=== PATIENT | male | born 1930 | race Hispanic/Latino ===

== ENCOUNTER → 2017-12-23 | Outpatient (CLI) | payer MEDICARE ==
[~2017-12-23] MED LIST: AMLO5TAB2 PO; ASPI-555 PO; CLOP75TA32 PO; FOLI1TAB85 PO; GABA-531 PO; HYDR25TA PO; LISI-613 PO; METO-391 PO; PANT40TA25 PO; SIMV20TA6 PO; TAMS0.4C32 PO; [UNRECOGNIZED DRUG - OTHER] PO
== END | disposition home or self-care (01) ==
LOC: RAH 09:27
PROVIDERS: ATTEND Internal Medicine Cardiovascular Disease
DX: I71.2 Thoracic aortic aneurysm, without rupture (principal)
CPT/HCPCS: 76775

== ENCOUNTER 2018-04-07 22:58 | Emergency (ER) | payer MEDICARE ==
[2018-04-07] MEDS ORDERED: GLUCAGON 1MG KIT 1 MG ML ONE (23:44)
[2018-04-07 23:45] LABS: EOSINOPHILS % (AUTO) 10.7 % (0.0-8.0); HEMATOCRIT 40.1 % (42-54); LYMPHOCYTES % (AUTO) 17.2 % (21.0-51.0); MEAN CORPUSCULAR HEMOGLOBIN 32.4 pg (27.0-33.0); MEAN CORPUSCULAR HGB CONC 34.4 g/dL (32.0-36.0); MEAN CORPUSCULAR VOLUME 94.2 fL (79-99); MONOCYTES % (AUTO) 12.1 % (3.0-13.0); NUCLEATED RED BLOOD CELLS 0.1 % (0.0-0.19); PLATELET COUNT (AUTO) 153 K/uL (130-400); RED BLOOD CELL COUNT(AUTO) 4.25 MIL/uL (4.50-6.20); RED CELL DISTRIBUTION WIDTH 13.4 % (11.0-15.5); WHITE BLOOD COUNT (AUTO) 3.9 K/uL (4.8-10.8)
[2018-04-07] MEDS ORDERED: LORAZEPAM 2 MG/ML 1 ML VIAL ONE (23:45)
[2018-04-07 23:57] LABS: CREATININE 1.6 mg/dL (0.5-1.5); POTASSIUM 3.5 mmol/L (3.5-5.1)
[2018-04-07 23:58] LABS: INR 1.21 (0.85-1.15); PARTIAL THROMBOPLASTIN TIME 33.2 SEC (26.3-35.5); PROTHROMBIN TIME 12.7 SEC (9.6-11.6)
== END 2018-04-08 02:01 | disposition home or self-care (01) ==
LOC: EDH 22:58
DX: T18.128A Food in esophagus causing other injury, initial encounter (principal); R10.13 Epigastric pain; E11.9 Type 2 diabetes mellitus without complications; E78.5 Hyperlipidemia, unspecified; I10 Essential (primary) hypertension; I25.10 Atherosclerotic heart disease of native coronary artery without angina pectoris; X58.XXXA Exposure to other specified factors, initial encounter; Y93.89 Activity, other specified; Y92.89 Other specified places as the place of occurrence of the external cause; Y99.8 Other external cause status
CPT/HCPCS: 36415; 74176; 80048; 82550; 83690; 84484; 85025; 85610; 85730; 93005; 96374; 96375; 99285; J1610; J2060

== ENCOUNTER 2018-09-24 21:08 | Emergency (ER) | payer MEDICARE ==
[~2018-09-24 21:08] MED LIST changes: -AMLO5TAB2 PO; +AMLO5TAB9 PO
[2018-09-24] MEDS ORDERED: GLUCAGON 1MG KIT 1 MG ML ONE (21:30)
[2018-09-24] MEDS ORDERED: LORAZEPAM 2 MG/ML 1 ML VIAL ONE (21:31)
[2018-09-25] MEDS ORDERED: PROPOFOL 10 MG/ML 20ML VIAL IV ONE ×3 (00:38→01:13)
[2018-09-25] MEDS ORDERED: SUCCINYLCHOLINE 200MG/10ML SYR ONE (00:41)
== END 2018-09-25 02:56 | disposition home or self-care (01) ==
LOC: EDH 21:08
DX: T18.128A Food in esophagus causing other injury, initial encounter (principal); K22.2 Esophageal obstruction; E11.9 Type 2 diabetes mellitus without complications; E78.5 Hyperlipidemia, unspecified; I10 Essential (primary) hypertension; I25.810 Atherosclerosis of coronary artery bypass graft(s) without angina pectoris; Z95.0 Presence of cardiac pacemaker; Z95.1 Presence of aortocoronary bypass graft; Z79.899 Other long term (current) drug therapy; X58.XXXA Exposure to other specified factors, initial encounter; Y93.89 Activity, other specified; Y92.89 Other specified places as the place of occurrence of the external cause; Y99.8 Other external cause status
CPT/HCPCS: 36415; 43247; 86677; 93005; 96374; 96375; 99284; J0330; J1610; J2060; J2704 ×2

== ENCOUNTER 2019-06-12 10:25 | Emergency (ER) | payer MEDICARE ==
[2019-06-12 11:12] LABS: BASOPHILS % (AUTO) 0.6 % (0.0-5.0); EOSINOPHILS % (AUTO) 5.2 % (0.0-8.0); HEMATOCRIT 36.6 % (42-54); LYMPHOCYTES % (AUTO) 8.5 % (21.0-51.0); MEAN CORPUSCULAR HEMOGLOBIN 31.8 pg (27.0-33.0); MEAN CORPUSCULAR HGB CONC 33.4 g/dL (32.0-36.0); MEAN CORPUSCULAR VOLUME 95.2 fL (79-99); MONOCYTES % (AUTO) 7.8 % (3.0-13.0); NEUTROPHILS % (AUTO) 77.9 % (40.0-77.0); NUCLEATED RED BLOOD CELLS 0.1 % (0.0-0.19); PLATELET COUNT (AUTO) 127 K/uL (130-400); RED BLOOD CELL COUNT(AUTO) 3.85 MIL/uL (4.50-6.20); WHITE BLOOD COUNT (AUTO) 4.1 K/uL (4.8-10.8)
[2019-06-12 11:17] LABS: CARBON DIOXIDE 24 mmol/L (21-32); CHLORIDE 104 mmol/L (101-111); CREATININE 1.5 mg/dL (0.5-1.5); GLOMERULAR FILTR. RATE CALC 47 mL/min (>60); GLUCOSE,RANDOM 124 mg/dL (70-105); POTASSIUM 4.4 mmol/L (3.5-5.1); SODIUM SERUM 140 mmol/L (136-145); UREA NITROGEN, BLOOD 22 mg/dL (7-18)
[2019-06-12 11:22] LABS: ALBUMIN 3.7 g/dL (3.5-5.0); BILIRUBIN,TOTAL 0.5 mg/dL (0.2-1.0); TOTAL PROTEIN, SERUM 6.9 g/dL (6.0-8.3)
[2019-06-12 11:39] LABS: ALANINE AMINOTRANSFERASE 9 U/L (12-78); ASPARTATE AMINOTRANSFERASE 14 U/L (10-37)
[2019-06-12 11:43] LABS: INR 1.17 (0.85-1.15); PROTHROMBIN TIME 12.2 SEC (9.6-11.6)
== END 2019-06-12 12:34 | disposition home or self-care (01) ==
LOC: EDH 10:25
DX: I11.0 Hypertensive heart disease with heart failure (principal); I50.22 Chronic systolic (congestive) heart failure; D61.818 Other pancytopenia; E78.5 Hyperlipidemia, unspecified; E11.9 Type 2 diabetes mellitus without complications; I25.10 Atherosclerotic heart disease of native coronary artery without angina pectoris; Z95.1 Presence of aortocoronary bypass graft
CPT/HCPCS: 36415; 80053; 83880; 85025; 85610; 85730; 93971

== ENCOUNTER 2019-12-30 10:38 | Emergency (ER) | payer MEDICARE ==
[~2019-12-30 10:38] MED LIST changes: +SIMV-43 PO; -SIMV20TA6 PO
[2019-12-30 11:10] LABS: CREATININE 1.6 mg/dL (0.5-1.5); POTASSIUM 3.9 mmol/L (3.5-5.1)
[2019-12-30 11:14] LABS: ALBUMIN 3.3 g/dL (3.5-5.0); BILIRUBIN,TOTAL 0.9 mg/dL (0.2-1.0); TOTAL PROTEIN, SERUM 6.7 g/dL (6.0-8.3)
[2019-12-30 11:20] LABS: BASOPHILS % (AUTO) 0.5 % (0.0-5.0); EOSINOPHILS % (AUTO) 2.9 % (0.0-8.0); HEMATOCRIT 33.9 % (42-54); LYMPHOCYTES % (AUTO) 8.7 % (21.0-51.0); MEAN CORPUSCULAR HEMOGLOBIN 31.2 pg (27.0-33.0); MEAN CORPUSCULAR VOLUME 94.4 fL (79-99); MONOCYTES % (AUTO) 6.8 % (3.0-13.0); NEUTROPHILS % (AUTO) 80.6 % (40.0-77.0); PLATELET COUNT (AUTO) 94 K/uL (130-400); RED BLOOD CELL COUNT(AUTO) 3.59 MIL/uL (4.50-6.20); RED CELL DISTRIBUTION WIDTH 13.8 % (11.0-15.5); WHITE BLOOD COUNT (AUTO) 3.8 K/uL (4.8-10.8)
[2019-12-30 11:23] LABS: B-TYPE NATRIURETIC PEPTIDE 437 pg/mL (0-100)
[2019-12-30] MEDS ORDERED: FUROSEMIDE 10 MG/ML 4ML VIAL ONE (11:33)
[2019-12-30 11:37] LABS: INR 1.63 (0.85-1.15); PARTIAL THROMBOPLASTIN TIME 46.4 SEC (26.3-35.5); PROTHROMBIN TIME 17.3 SEC (9.6-11.6)
[2019-12-30] MEDS ORDERED: IPRATROPIUM/ALBUTEROL SULFATE 3 ML SOLUTION IH ONE (11:53)
== END 2019-12-30 14:47 | disposition home or self-care (01) ==
LOC: EDH 10:38
DX: I13.0 Hypertensive heart and chronic kidney disease with heart failure and stage 1 through stage 4 chronic kidney disease, or unspecified chronic kidney disease (principal); I50.43 Acute on chronic combined systolic (congestive) and diastolic (congestive) heart failure; E11.22 Type 2 diabetes mellitus with diabetic chronic kidney disease; N18.9 Chronic kidney disease, unspecified; I25.10 Atherosclerotic heart disease of native coronary artery without angina pectoris; E78.5 Hyperlipidemia, unspecified; Z87.891 Personal history of nicotine dependence
CPT/HCPCS: 36415; 71045; 80053; 82550; 83735; 83880; 84484 ×2; 85025; 85610; 85730; 87804 ×2; 93005 ×2; 94640; 96374; 99285; J1940

== ENCOUNTER → 2020-01-03 | Outpatient (CLI) | payer MEDICARE ==
[~2020-01-03] MED LIST changes: +LIDOCAINE HCL 2% JELLY 5 ML TP ONE
[2020-01-03 14:16] VITALS: BP 147/77
== END | disposition home or self-care (01) ==
LOC: WHH 08:45
PROVIDERS: ATTEND Surgery
DX: E11.622 Type 2 diabetes mellitus with other skin ulcer (principal); L97.821 Non-pressure chronic ulcer of other part of left lower leg limited to breakdown of skin; E11.22 Type 2 diabetes mellitus with diabetic chronic kidney disease; I13.0 Hypertensive heart and chronic kidney disease with heart failure and stage 1 through stage 4 chronic kidney disease, or unspecified chronic kidney disease; N18.9 Chronic kidney disease, unspecified; I50.43 Acute on chronic combined systolic (congestive) and diastolic (congestive) heart failure; E11.51 Type 2 diabetes mellitus with diabetic peripheral angiopathy without gangrene; I25.10 Atherosclerotic heart disease of native coronary artery without angina pectoris; E78.5 Hyperlipidemia, unspecified; D51.9 Vitamin B12 deficiency anemia, unspecified; Z95.1 Presence of aortocoronary bypass graft; Z87.891 Personal history of nicotine dependence; Z79.82 Long term (current) use of aspirin
CPT/HCPCS: 82948; 87070; 87077 ×3; 87186 ×3; A6022; A6197; G0463

== ENCOUNTER → 2020-01-08 | Outpatient (CLI) | payer MEDICARE ==
[2020-01-08 11:31] VITALS: BP 121/54
== END | disposition home or self-care (01) ==
LOC: WHH 09:00
PROVIDERS: ATTEND Surgery
DX: E11.622 Type 2 diabetes mellitus with other skin ulcer (principal); L97.822 Non-pressure chronic ulcer of other part of left lower leg with fat layer exposed; I13.0 Hypertensive heart and chronic kidney disease with heart failure and stage 1 through stage 4 chronic kidney disease, or unspecified chronic kidney disease; E11.22 Type 2 diabetes mellitus with diabetic chronic kidney disease; N18.9 Chronic kidney disease, unspecified; I50.43 Acute on chronic combined systolic (congestive) and diastolic (congestive) heart failure; E11.51 Type 2 diabetes mellitus with diabetic peripheral angiopathy without gangrene; I25.10 Atherosclerotic heart disease of native coronary artery without angina pectoris; E78.5 Hyperlipidemia, unspecified; D51.9 Vitamin B12 deficiency anemia, unspecified; Z79.4 Long term (current) use of insulin; Z87.891 Personal history of nicotine dependence; Z95.1 Presence of aortocoronary bypass graft
CPT/HCPCS: 11042; 11045; A6022; A6197

== ENCOUNTER → 2020-01-22 | Outpatient (CLI) | payer MEDICARE ==
[~2020-01-22] MED LIST changes: -LIDOCAINE HCL 2% JELLY 5 ML TP ONE; +LIDOCAINE/PRILOCAINE CREAM 5GM TUBE TP ONE
[2020-01-22 10:41] VITALS: BP 132/52
== END | disposition home or self-care (01) ==
LOC: WHH 08:55
PROVIDERS: ATTEND Surgery
DX: E11.622 Type 2 diabetes mellitus with other skin ulcer (principal); L97.822 Non-pressure chronic ulcer of other part of left lower leg with fat layer exposed; E11.22 Type 2 diabetes mellitus with diabetic chronic kidney disease; I13.0 Hypertensive heart and chronic kidney disease with heart failure and stage 1 through stage 4 chronic kidney disease, or unspecified chronic kidney disease; N18.9 Chronic kidney disease, unspecified; I50.43 Acute on chronic combined systolic (congestive) and diastolic (congestive) heart failure; E11.51 Type 2 diabetes mellitus with diabetic peripheral angiopathy without gangrene; I25.10 Atherosclerotic heart disease of native coronary artery without angina pectoris; E78.5 Hyperlipidemia, unspecified; D51.9 Vitamin B12 deficiency anemia, unspecified; Z79.4 Long term (current) use of insulin; Z87.891 Personal history of nicotine dependence; Z95.1 Presence of aortocoronary bypass graft
CPT/HCPCS: A6022; G0463; J3490

== ENCOUNTER → 2020-02-07 | Outpatient (CLI) | payer MEDICARE ==
[~2020-02-07] MED LIST changes: -LIDOCAINE/PRILOCAINE CREAM 5GM TUBE TP ONE
== END | disposition home or self-care (01) ==
LOC: SHCH 15:54
PROVIDERS: ATTEND Internal Medicine Cardiovascular Disease
DX: R01.1 Cardiac murmur, unspecified (principal)
CPT/HCPCS: 93306; 93356

== ENCOUNTER → 2020-02-19 | Outpatient (CLI) | payer MEDICARE ==
[~2020-02-19] MED LIST changes: +AMLO-257 PO; -AMLO5TAB9 PO; -ASPI-555 PO; +ASPI-556 PO; +FERR325T22 PO; +FOLI0.4T2 PO; +FURO20TA4 PO; +HYDR-2534 PO; -PANT40TA25 PO; +PANT40TA54 PO; +POLY17PO4 PO; +PSYL3.4P5 PO; +RIVA20TA PO; +VITAMIN B12 PO; +VITAMIN D3 PO
== END | disposition home or self-care (01) ==
LOC: EDBD → SHCH 12:37
PROVIDERS: ATTEND Internal Medicine Cardiovascular Disease
DX: I73.9 Peripheral vascular disease, unspecified (principal); R09.89 Other specified symptoms and signs involving the circulatory and respiratory systems
CPT/HCPCS: 93880; 93925

== ENCOUNTER → 2020-02-21 | Outpatient (CLI) | payer MEDICARE ==
[~2020-02-21] MED LIST changes: -AMLO-257 PO; +AMLO5TAB9 PO; -FERR325T22 PO; -FOLI0.4T2 PO; -FURO20TA4 PO; -HYDR-2534 PO; +PANT40TA25 PO; -PANT40TA54 PO; -POLY17PO4 PO; -PSYL3.4P5 PO; +REGADENOSON 0.4 MG/5 ML PF SYG IVP SCH; -RIVA20TA PO; -VITAMIN B12 PO; -VITAMIN D3 PO
== END | disposition home or self-care (01) ==
LOC: EDBD → SHCH 08:00
PROVIDERS: ATTEND Internal Medicine Cardiovascular Disease
DX: I10 Essential (primary) hypertension (principal); I25.810 Atherosclerosis of coronary artery bypass graft(s) without angina pectoris
CPT/HCPCS: 78452; 93017; A9500 ×2; J2785; 96374

== ENCOUNTER → 2020-02-28 | Outpatient (CLI) | payer MEDICARE ==
[~2020-02-28] MED LIST changes: +ASPI-555 PO; -ASPI-556 PO; -REGADENOSON 0.4 MG/5 ML PF SYG IVP SCH
[2020-02-28 14:40] VITALS: BP 149/59
== END | disposition home or self-care (01) ==
LOC: WHH 10:15
PROVIDERS: ATTEND Surgery
DX: E11.622 Type 2 diabetes mellitus with other skin ulcer (principal); L97.821 Non-pressure chronic ulcer of other part of left lower leg limited to breakdown of skin; E11.22 Type 2 diabetes mellitus with diabetic chronic kidney disease; I13.0 Hypertensive heart and chronic kidney disease with heart failure and stage 1 through stage 4 chronic kidney disease, or unspecified chronic kidney disease; N18.9 Chronic kidney disease, unspecified; I50.41 Acute combined systolic (congestive) and diastolic (congestive) heart failure; E78.5 Hyperlipidemia, unspecified; I25.810 Atherosclerosis of coronary artery bypass graft(s) without angina pectoris; I25.10 Atherosclerotic heart disease of native coronary artery without angina pectoris; E11.51 Type 2 diabetes mellitus with diabetic peripheral angiopathy without gangrene; R01.1 Cardiac murmur, unspecified; Z79.4 Long term (current) use of insulin; Z87.891 Personal history of nicotine dependence; Z95.1 Presence of aortocoronary bypass graft; Z79.82 Long term (current) use of aspirin
CPT/HCPCS: A6452; G0463

== ENCOUNTER → 2020-03-06 | Outpatient (CLI) | payer MEDICARE ==
[~2020-03-06] MED LIST changes: +LIDOCAINE HCL 4% LTA SOL 4 ML VIAL TP ONE
[2020-03-06 12:54] VITALS: BP 133/51
== END | disposition home or self-care (01) ==
LOC: WHH 10:30
PROVIDERS: ATTEND Surgery
DX: E11.622 Type 2 diabetes mellitus with other skin ulcer (principal); L97.821 Non-pressure chronic ulcer of other part of left lower leg limited to breakdown of skin; E11.22 Type 2 diabetes mellitus with diabetic chronic kidney disease; I13.0 Hypertensive heart and chronic kidney disease with heart failure and stage 1 through stage 4 chronic kidney disease, or unspecified chronic kidney disease; N18.9 Chronic kidney disease, unspecified; I50.41 Acute combined systolic (congestive) and diastolic (congestive) heart failure; E11.51 Type 2 diabetes mellitus with diabetic peripheral angiopathy without gangrene; I25.810 Atherosclerosis of coronary artery bypass graft(s) without angina pectoris; I25.10 Atherosclerotic heart disease of native coronary artery without angina pectoris; E78.5 Hyperlipidemia, unspecified; R01.1 Cardiac murmur, unspecified; Z79.4 Long term (current) use of insulin; Z79.82 Long term (current) use of aspirin; Z87.891 Personal history of nicotine dependence; Z95.1 Presence of aortocoronary bypass graft
CPT/HCPCS: 11042; A6022; A6452

== ENCOUNTER → 2020-03-13 | Outpatient (CLI) | payer MEDICARE ==
[~2020-03-13] MED LIST changes: -LIDOCAINE HCL 4% LTA SOL 4 ML VIAL TP ONE
[2020-03-13 12:52] VITALS: BP 148/54
== END | disposition home or self-care (01) ==
LOC: WHH 09:00
PROVIDERS: ATTEND Surgery
DX: E11.622 Type 2 diabetes mellitus with other skin ulcer (principal); L97.821 Non-pressure chronic ulcer of other part of left lower leg limited to breakdown of skin; E11.22 Type 2 diabetes mellitus with diabetic chronic kidney disease; I13.0 Hypertensive heart and chronic kidney disease with heart failure and stage 1 through stage 4 chronic kidney disease, or unspecified chronic kidney disease; N18.9 Chronic kidney disease, unspecified; I50.41 Acute combined systolic (congestive) and diastolic (congestive) heart failure; E11.51 Type 2 diabetes mellitus with diabetic peripheral angiopathy without gangrene; I25.10 Atherosclerotic heart disease of native coronary artery without angina pectoris; I25.810 Atherosclerosis of coronary artery bypass graft(s) without angina pectoris; E78.5 Hyperlipidemia, unspecified; Z79.4 Long term (current) use of insulin; Z79.82 Long term (current) use of aspirin; Z87.891 Personal history of nicotine dependence; Z95.1 Presence of aortocoronary bypass graft
CPT/HCPCS: A6022; G0463

== ENCOUNTER → 2020-03-20 | Outpatient (CLI) | payer MEDICARE ==
[~2020-03-20] MED LIST changes: +GEL DRESSING 90 GM GEL TP ONE
[2020-03-20 11:46] VITALS: BP 176/76
== END | disposition home or self-care (01) ==
LOC: WHH 08:55
PROVIDERS: ATTEND Surgery
DX: E11.622 Type 2 diabetes mellitus with other skin ulcer (principal); L97.821 Non-pressure chronic ulcer of other part of left lower leg limited to breakdown of skin; E11.22 Type 2 diabetes mellitus with diabetic chronic kidney disease; I13.0 Hypertensive heart and chronic kidney disease with heart failure and stage 1 through stage 4 chronic kidney disease, or unspecified chronic kidney disease; N18.9 Chronic kidney disease, unspecified; I50.41 Acute combined systolic (congestive) and diastolic (congestive) heart failure; E11.51 Type 2 diabetes mellitus with diabetic peripheral angiopathy without gangrene; I25.10 Atherosclerotic heart disease of native coronary artery without angina pectoris; I25.810 Atherosclerosis of coronary artery bypass graft(s) without angina pectoris; E78.5 Hyperlipidemia, unspecified; Z79.4 Long term (current) use of insulin; Z79.82 Long term (current) use of aspirin; Z87.891 Personal history of nicotine dependence; Z95.1 Presence of aortocoronary bypass graft
CPT/HCPCS: 87070; A6022; G0463

== ENCOUNTER → 2020-03-27 | Outpatient (CLI) | payer MEDICARE ==
[~2020-03-27] MED LIST changes: +AMLO-257 PO; -AMLO5TAB9 PO; -ASPI-555 PO; +ASPI-556 PO; +FERR325T22 PO; +FOLI0.4T2 PO; +FURO20TA4 PO; -GEL DRESSING 90 GM GEL TP ONE; +HYDR-2534 PO; -PANT40TA25 PO; +PANT40TA54 PO; +POLY17PO4 PO; +PSYL3.4P5 PO; +RIVA20TA PO; +VITAMIN B12 PO; +VITAMIN D3 PO
[2020-03-27 13:49] VITALS: BP 155/60
== END | disposition home or self-care (01) ==
LOC: EDBD → WHH 09:00
PROVIDERS: ATTEND Surgery
DX: E11.622 Type 2 diabetes mellitus with other skin ulcer (principal); L97.821 Non-pressure chronic ulcer of other part of left lower leg limited to breakdown of skin; E11.51 Type 2 diabetes mellitus with diabetic peripheral angiopathy without gangrene; E11.22 Type 2 diabetes mellitus with diabetic chronic kidney disease; I13.0 Hypertensive heart and chronic kidney disease with heart failure and stage 1 through stage 4 chronic kidney disease, or unspecified chronic kidney disease; N18.9 Chronic kidney disease, unspecified; I50.41 Acute combined systolic (congestive) and diastolic (congestive) heart failure; I25.10 Atherosclerotic heart disease of native coronary artery without angina pectoris; I25.810 Atherosclerosis of coronary artery bypass graft(s) without angina pectoris; E78.5 Hyperlipidemia, unspecified; Z79.4 Long term (current) use of insulin; Z79.82 Long term (current) use of aspirin; Z87.891 Personal history of nicotine dependence; Z95.1 Presence of aortocoronary bypass graft
CPT/HCPCS: G0463

== ENCOUNTER 2020-04-01 09:00 | Outpatient (CLI) | payer MEDICARE ==
[~2020-04-01 09:00] MED LIST changes: -FERR325T22 PO; -FOLI0.4T2 PO; -FURO20TA4 PO; -HYDR-2534 PO; -POLY17PO4 PO; -PSYL3.4P5 PO; -RIVA20TA PO; -VITAMIN B12 PO; -VITAMIN D3 PO
[2020-04-01 11:26] VITALS: BP 114/68
[2020-07-10] MEDS ORDERED: RIVA20TA PO (15:55)
[2020-07-10] MEDS ORDERED: FURO20TA4 PO ×2 (15:55)
[2020-07-11] MEDS ORDERED: VITAMIN B12 PO (10:11)
[2020-07-11] MEDS ORDERED: FERR325T22 PO (10:11)
[2020-07-11] MEDS ORDERED: HYDR-2534 PO (10:11)
[2020-07-11] MEDS ORDERED: VITAMIN D3 PO (10:11)
[2020-07-11] MEDS ORDERED: FOLI0.4T2 PO (10:11)
[2020-07-11] MEDS ORDERED: PANT40TA54 PO (10:11)
[2020-07-25] MEDS ORDERED: PSYL3.4P5 PO (11:55)
[2020-07-25] MEDS ORDERED: POLY17PO4 PO (11:55)
== END 2020-04-01 11:36 | disposition home or self-care (01) ==
LOC: EDBD → WHH 09:00
PROVIDERS: ATTEND Surgery
DX: E11.622 Type 2 diabetes mellitus with other skin ulcer (principal); L97.828 Non-pressure chronic ulcer of other part of left lower leg with other specified severity; E11.51 Type 2 diabetes mellitus with diabetic peripheral angiopathy without gangrene; E11.22 Type 2 diabetes mellitus with diabetic chronic kidney disease; I13.0 Hypertensive heart and chronic kidney disease with heart failure and stage 1 through stage 4 chronic kidney disease, or unspecified chronic kidney disease; N18.9 Chronic kidney disease, unspecified; I50.41 Acute combined systolic (congestive) and diastolic (congestive) heart failure; I25.10 Atherosclerotic heart disease of native coronary artery without angina pectoris; I25.810 Atherosclerosis of coronary artery bypass graft(s) without angina pectoris; E78.5 Hyperlipidemia, unspecified; Z79.4 Long term (current) use of insulin; Z79.82 Long term (current) use of aspirin; Z87.891 Personal history of nicotine dependence; Z95.1 Presence of aortocoronary bypass graft
CPT/HCPCS: G0463

== ENCOUNTER → 2020-04-24 | Outpatient (CLI) | payer MEDICARE ==
[~2020-04-24] MED LIST changes: -AMLO-257 PO; +AMLO5TAB9 PO; +PANT40TA25 PO; -PANT40TA54 PO
== END | disposition home or self-care (01) ==
LOC: OIH 10:05 → EDBD 10:05
PROVIDERS: ATTEND Physical Medicine & Rehabilitation
DX: M16.11 Unilateral primary osteoarthritis, right hip (principal); M47.817 Spondylosis without myelopathy or radiculopathy, lumbosacral region
CPT/HCPCS: 72110; 73502

== ENCOUNTER → 2020-05-01 | Outpatient (CLI) | payer MEDICARE ==
[~2020-05-01] MED LIST changes: +LIDOCAINE HCL 4% LTA SOL 4 ML VIAL TP ONE
== END | disposition home or self-care (01) ==
LOC: EDBD → WHH 09:30
PROVIDERS: ATTEND Surgery
DX: E11.622 Type 2 diabetes mellitus with other skin ulcer (principal); L97.822 Non-pressure chronic ulcer of other part of left lower leg with fat layer exposed; S81.802A Unspecified open wound, left lower leg, initial encounter; E11.22 Type 2 diabetes mellitus with diabetic chronic kidney disease; I13.0 Hypertensive heart and chronic kidney disease with heart failure and stage 1 through stage 4 chronic kidney disease, or unspecified chronic kidney disease; N18.9 Chronic kidney disease, unspecified; I50.41 Acute combined systolic (congestive) and diastolic (congestive) heart failure; E11.51 Type 2 diabetes mellitus with diabetic peripheral angiopathy without gangrene; M16.11 Unilateral primary osteoarthritis, right hip; E78.5 Hyperlipidemia, unspecified; I25.10 Atherosclerotic heart disease of native coronary artery without angina pectoris; R01.1 Cardiac murmur, unspecified; Z95.1 Presence of aortocoronary bypass graft; Z87.891 Personal history of nicotine dependence; Z79.4 Long term (current) use of insulin; Z79.82 Long term (current) use of aspirin; X58.XXXA Exposure to other specified factors, initial encounter; Y93.89 Activity, other specified; Y92.238 Other place in hospital as the place of occurrence of the external cause; Y99.8 Other external cause status
CPT/HCPCS: 11042; 87070; 87077; 87186; A4450; A6021

== ENCOUNTER → 2020-05-08 | Outpatient (CLI) | payer MEDICARE | END | disposition home or self-care (01) | LOC: WHH 11:20 | PROVIDERS: ATTEND Surgery | DX: E11.622 Type 2 diabetes mellitus with other skin ulcer (principal); L97.822 Non-pressure chronic ulcer of other part of left lower leg with fat layer exposed; S81.802D Unspecified open wound, left lower leg, subsequent encounter; E11.22 Type 2 diabetes mellitus with diabetic chronic kidney disease; I13.0 Hypertensive heart and chronic kidney disease with heart failure and stage 1 through stage 4 chronic kidney disease, or unspecified chronic kidney disease; N18.9 Chronic kidney disease, unspecified; I50.41 Acute combined systolic (congestive) and diastolic (congestive) heart failure; E11.51 Type 2 diabetes mellitus with diabetic peripheral angiopathy without gangrene; M16.11 Unilateral primary osteoarthritis, right hip; E78.5 Hyperlipidemia, unspecified; I25.10 Atherosclerotic heart disease of native coronary artery without angina pectoris; R01.1 Cardiac murmur, unspecified; Z95.1 Presence of aortocoronary bypass graft; Z87.891 Personal history of nicotine dependence; Z79.4 Long term (current) use of insulin; Z79.82 Long term (current) use of aspirin; X58.XXXD Exposure to other specified factors, subsequent encounter | CPT/HCPCS: A6021; G0463 ==

== ENCOUNTER → 2020-05-15 | Outpatient (CLI) | payer MEDICARE | END | disposition home or self-care (01) | LOC: WHH 09:35 | PROVIDERS: ATTEND Surgery | DX: S81.802D Unspecified open wound, left lower leg, subsequent encounter (principal); E11.622 Type 2 diabetes mellitus with other skin ulcer; L97.821 Non-pressure chronic ulcer of other part of left lower leg limited to breakdown of skin; E11.22 Type 2 diabetes mellitus with diabetic chronic kidney disease; I13.0 Hypertensive heart and chronic kidney disease with heart failure and stage 1 through stage 4 chronic kidney disease, or unspecified chronic kidney disease; N18.9 Chronic kidney disease, unspecified; I50.41 Acute combined systolic (congestive) and diastolic (congestive) heart failure; E11.51 Type 2 diabetes mellitus with diabetic peripheral angiopathy without gangrene; M16.11 Unilateral primary osteoarthritis, right hip; E78.5 Hyperlipidemia, unspecified; I25.10 Atherosclerotic heart disease of native coronary artery without angina pectoris; R01.1 Cardiac murmur, unspecified; Z95.1 Presence of aortocoronary bypass graft; Z87.891 Personal history of nicotine dependence; Z79.4 Long term (current) use of insulin; Z79.82 Long term (current) use of aspirin; X58.XXXD Exposure to other specified factors, subsequent encounter | CPT/HCPCS: A6021; A6212; G0463 ==

== ENCOUNTER → 2020-05-22 | Outpatient (CLI) | payer MEDICARE ==
[~2020-05-22] MED LIST changes: +FERR325T22 PO; +FOLI0.4T2 PO; +FURO20TA4 PO; +HYDR-2534 PO; -LIDOCAINE HCL 4% LTA SOL 4 ML VIAL TP ONE; -PANT40TA25 PO; +PANT40TA54 PO; +RIVA20TA PO; +VITAMIN B12 PO; +VITAMIN D3 PO
== END | disposition home or self-care (01) ==
LOC: RAH 09:48
PROVIDERS: ATTEND Urology
DX: N43.3 Hydrocele, unspecified (principal); N50.9 Disorder of male genital organs, unspecified
CPT/HCPCS: 76870

== ENCOUNTER → 2020-05-22 | Outpatient (CLI) | payer MEDICARE ==
[~2020-05-22] MED LIST changes: -FERR325T22 PO; -FOLI0.4T2 PO; -FURO20TA4 PO; -HYDR-2534 PO; +LIDOCAINE HCL 4% LTA SOL 4 ML VIAL TP ONE; +PANT40TA25 PO; -PANT40TA54 PO; -RIVA20TA PO; -VITAMIN B12 PO; -VITAMIN D3 PO
== END | disposition home or self-care (01) ==
LOC: WHH 10:45
PROVIDERS: ATTEND Surgery
DX: E11.622 Type 2 diabetes mellitus with other skin ulcer (principal); L97.821 Non-pressure chronic ulcer of other part of left lower leg limited to breakdown of skin; S81.802D Unspecified open wound, left lower leg, subsequent encounter; E11.22 Type 2 diabetes mellitus with diabetic chronic kidney disease; I13.0 Hypertensive heart and chronic kidney disease with heart failure and stage 1 through stage 4 chronic kidney disease, or unspecified chronic kidney disease; N18.9 Chronic kidney disease, unspecified; I50.41 Acute combined systolic (congestive) and diastolic (congestive) heart failure; E11.51 Type 2 diabetes mellitus with diabetic peripheral angiopathy without gangrene; M16.11 Unilateral primary osteoarthritis, right hip; E78.5 Hyperlipidemia, unspecified; I25.10 Atherosclerotic heart disease of native coronary artery without angina pectoris; R01.1 Cardiac murmur, unspecified; Z95.1 Presence of aortocoronary bypass graft; Z87.891 Personal history of nicotine dependence; Z79.4 Long term (current) use of insulin; Z79.82 Long term (current) use of aspirin; X58.XXXD Exposure to other specified factors, subsequent encounter
CPT/HCPCS: A6021; G0463

== ENCOUNTER → 2020-05-29 | Outpatient (CLI) | payer MEDICARE ==
[~2020-05-29] MED LIST changes: -LIDOCAINE HCL 4% LTA SOL 4 ML VIAL TP ONE
== END | disposition home or self-care (01) ==
LOC: WHH 09:45
PROVIDERS: ATTEND Surgery
DX: E11.622 Type 2 diabetes mellitus with other skin ulcer (principal); L97.821 Non-pressure chronic ulcer of other part of left lower leg limited to breakdown of skin; S81.802D Unspecified open wound, left lower leg, subsequent encounter; L97.211 Non-pressure chronic ulcer of right calf limited to breakdown of skin; S81.801A Unspecified open wound, right lower leg, initial encounter; E11.22 Type 2 diabetes mellitus with diabetic chronic kidney disease; I13.0 Hypertensive heart and chronic kidney disease with heart failure and stage 1 through stage 4 chronic kidney disease, or unspecified chronic kidney disease; N18.9 Chronic kidney disease, unspecified; I50.41 Acute combined systolic (congestive) and diastolic (congestive) heart failure; E11.51 Type 2 diabetes mellitus with diabetic peripheral angiopathy without gangrene; M16.11 Unilateral primary osteoarthritis, right hip; E78.5 Hyperlipidemia, unspecified; I25.10 Atherosclerotic heart disease of native coronary artery without angina pectoris; R01.1 Cardiac murmur, unspecified; Z95.1 Presence of aortocoronary bypass graft; Z87.891 Personal history of nicotine dependence; Z79.4 Long term (current) use of insulin; Z79.82 Long term (current) use of aspirin; X58.XXXD Exposure to other specified factors, subsequent encounter; X58.XXXA Exposure to other specified factors, initial encounter; Y93.89 Activity, other specified; Y92.89 Other specified places as the place of occurrence of the external cause; Y99.8 Other external cause status
CPT/HCPCS: A6021; A6197; G0463

== ENCOUNTER → 2020-06-12 | Outpatient (CLI) | payer MEDICARE | END | disposition home or self-care (01) | LOC: WHH 09:30 | PROVIDERS: ATTEND Surgery | DX: E11.622 Type 2 diabetes mellitus with other skin ulcer (principal); L97.821 Non-pressure chronic ulcer of other part of left lower leg limited to breakdown of skin; L97.211 Non-pressure chronic ulcer of right calf limited to breakdown of skin; S81.802D Unspecified open wound, left lower leg, subsequent encounter; S81.801D Unspecified open wound, right lower leg, subsequent encounter; E11.22 Type 2 diabetes mellitus with diabetic chronic kidney disease; I13.0 Hypertensive heart and chronic kidney disease with heart failure and stage 1 through stage 4 chronic kidney disease, or unspecified chronic kidney disease; N18.9 Chronic kidney disease, unspecified; I50.41 Acute combined systolic (congestive) and diastolic (congestive) heart failure; E11.51 Type 2 diabetes mellitus with diabetic peripheral angiopathy without gangrene; M16.11 Unilateral primary osteoarthritis, right hip; E78.5 Hyperlipidemia, unspecified; I25.10 Atherosclerotic heart disease of native coronary artery without angina pectoris; R01.1 Cardiac murmur, unspecified; Z95.1 Presence of aortocoronary bypass graft; Z87.891 Personal history of nicotine dependence; Z79.4 Long term (current) use of insulin; Z79.82 Long term (current) use of aspirin; X58.XXXD Exposure to other specified factors, subsequent encounter | CPT/HCPCS: A6021; A6197; G0463 ==

== ENCOUNTER 2020-06-13 13:03 | Emergency (ER) | payer MEDICARE ==
[~2020-06-13 13:03] MED LIST changes: -PANT40TA25 PO; +PANT40TA54 PO
[2020-06-13 13:34] LABS: BASOPHILS % (AUTO) 0.3 % (0.0-5.0); EOSINOPHILS % (AUTO) 0.6 % (0.0-8.0); HEMATOCRIT 33.4 % (42-54); LYMPHOCYTES % (AUTO) 3.9 % (21.0-51.0); MEAN CORPUSCULAR HEMOGLOBIN 30.8 pg (27.0-33.0); MEAN CORPUSCULAR HGB CONC 32.9 g/dL (32.0-36.0); MEAN CORPUSCULAR VOLUME 93.6 fL (79-99); MONOCYTES % (AUTO) 7.7 % (3.0-13.0); NEUTROPHILS % (AUTO) 86.9 % (40.0-77.0); NUCLEATED RED BLOOD CELLS 0.5 % (0.0-0.19); PLATELET COUNT (AUTO) 95 K/uL (130-400); RED BLOOD CELL COUNT(AUTO) 3.57 MIL/uL (4.50-6.20); RED CELL DISTRIBUTION WIDTH 17.2 % (11.0-15.5); WHITE BLOOD COUNT (AUTO) 6.6 K/uL (4.8-10.8)
[2020-06-13 13:48] LABS: POTASSIUM 3.8 mmol/L (3.5-5.1)
[2020-06-13 13:51] LABS: INR 1.5 (0.85-1.15); PARTIAL THROMBOPLASTIN TIME 49.5 SEC (26.3-35.5)
[2020-06-13 13:52] LABS: ALBUMIN 3.2 g/dL (3.5-5.0); BILIRUBIN,DIRECT 0.3 mg/dL (0.0-0.3); BILIRUBIN,TOTAL 0.7 mg/dL (0.2-1.0); TOTAL PROTEIN, SERUM 6.4 g/dL (6.0-8.3)
[2020-06-13 15:15] LABS: APPEARANCE,URINE Turbid (CLEAR); BILIRUBIN,URINE Negative (NEGATIVE); COLOR,URINE Yellow (YELLOW); GLUCOSE, URINE (UA) Negative (NEGATIVE); KETONES,URINE Negative (NEGATIVE); LEUKOCYTE ESTERASE ,URINE Large (NEGATIVE); NITRATE,URINE Negative (NEGATIVE); OCCULT BLOOD,URINE Moderate (NEGATIVE); PROTEIN,URINE POS 1+ mg/dL (NEGATIVE)
[2020-06-13 15:23] LABS: BACTERIA,URINE Few /HPF (None Seen); RBC,URINE None Seen /HPF (0-1); SQUAMOUS EPITHELIAL CELL,UR None Seen /HPF (0-2); WBC,URINE TNTC /HPF (0-1)
[2020-06-13] MEDS ORDERED: CEFTRIAXONE SODIUM 2 GM VIAL ONE (16:16)
[2020-06-13] MEDS ORDERED: SODIUM CHLORIDE 0.9% 1000ML 1,000 ML IV ONE (16:17)
[2020-06-13] MEDS ORDERED: SODIUM CHLORIDE 0.9% 100 ML IV ONE (16:17)
[2020-06-13] MEDS ORDERED: MORPHINE SULFATE 2 MG/ML 1ML SYG ONE (16:55)
[2020-07-10] MEDS ORDERED: FURO20TA4 PO ×2 (15:55)
[2020-07-10] MEDS ORDERED: RIVA20TA PO (15:55)
[2020-07-11] MEDS ORDERED: FOLI0.4T2 PO (10:11)
[2020-07-11] MEDS ORDERED: FERR325T22 PO (10:11)
[2020-07-11] MEDS ORDERED: VITAMIN B12 PO (10:11)
[2020-07-11] MEDS ORDERED: VITAMIN D3 PO (10:11)
[2020-07-11] MEDS ORDERED: HYDR-2534 PO (10:11)
[2020-07-11] MEDS ORDERED: PANT40TA54 PO (10:11)
== END 2020-06-13 18:38 | disposition home or self-care (01) ==
LOC: EDH 13:03
DX: S30.0XXA Contusion of lower back and pelvis, initial encounter (principal); N39.0 Urinary tract infection, site not specified; R60.0 Localized edema; E86.0 Dehydration; Z79.899 Other long term (current) drug therapy; Z72.0 Tobacco use; W01.0XXA Fall on same level from slipping, tripping and stumbling without subsequent striking against object, initial encounter; Y93.89 Activity, other specified; Y92.89 Other specified places as the place of occurrence of the external cause; Y99.8 Other external cause status
CPT/HCPCS: 36415; 70450; 71250; 72125; 72131; 74176; 80048; 80076; 81001; 82550; 83605; 84484; 85025; 85610; 85730; 87040 ×2; 87077; 87088; 87186; 93005; 93970; 96361; 96374; 96375; 99285; J0696; J7030

== ENCOUNTER → 2020-06-19 | Outpatient (CLI) | payer MEDICARE ==
[~2020-06-19] MED LIST changes: +PANT40TA25 PO; -PANT40TA54 PO
== END | disposition home or self-care (01) ==
LOC: WHH 09:30
PROVIDERS: ATTEND Surgery
DX: E11.622 Type 2 diabetes mellitus with other skin ulcer (principal); L97.821 Non-pressure chronic ulcer of other part of left lower leg limited to breakdown of skin; L97.211 Non-pressure chronic ulcer of right calf limited to breakdown of skin; S81.802D Unspecified open wound, left lower leg, subsequent encounter; S81.801D Unspecified open wound, right lower leg, subsequent encounter; E11.22 Type 2 diabetes mellitus with diabetic chronic kidney disease; I13.0 Hypertensive heart and chronic kidney disease with heart failure and stage 1 through stage 4 chronic kidney disease, or unspecified chronic kidney disease; N18.9 Chronic kidney disease, unspecified; I50.41 Acute combined systolic (congestive) and diastolic (congestive) heart failure; E11.51 Type 2 diabetes mellitus with diabetic peripheral angiopathy without gangrene; M16.11 Unilateral primary osteoarthritis, right hip; E78.5 Hyperlipidemia, unspecified; I25.10 Atherosclerotic heart disease of native coronary artery without angina pectoris; R01.1 Cardiac murmur, unspecified; Z95.1 Presence of aortocoronary bypass graft; Z87.891 Personal history of nicotine dependence; Z79.4 Long term (current) use of insulin; Z79.82 Long term (current) use of aspirin; X58.XXXD Exposure to other specified factors, subsequent encounter
CPT/HCPCS: A6021; A6197 ×3; G0463

== ENCOUNTER → 2020-06-26 | Outpatient (CLI) | payer MEDICARE | END | disposition home or self-care (01) | LOC: WHH 09:25 | PROVIDERS: ATTEND Surgery | DX: E11.622 Type 2 diabetes mellitus with other skin ulcer (principal); L97.821 Non-pressure chronic ulcer of other part of left lower leg limited to breakdown of skin; L97.211 Non-pressure chronic ulcer of right calf limited to breakdown of skin; L98.491 Non-pressure chronic ulcer of skin of other sites limited to breakdown of skin; S51.002A Unspecified open wound of left elbow, initial encounter; S81.802D Unspecified open wound, left lower leg, subsequent encounter; S81.801D Unspecified open wound, right lower leg, subsequent encounter; E11.22 Type 2 diabetes mellitus with diabetic chronic kidney disease; I13.0 Hypertensive heart and chronic kidney disease with heart failure and stage 1 through stage 4 chronic kidney disease, or unspecified chronic kidney disease; N18.9 Chronic kidney disease, unspecified; I50.41 Acute combined systolic (congestive) and diastolic (congestive) heart failure; E11.51 Type 2 diabetes mellitus with diabetic peripheral angiopathy without gangrene; M16.11 Unilateral primary osteoarthritis, right hip; E78.5 Hyperlipidemia, unspecified; I25.10 Atherosclerotic heart disease of native coronary artery without angina pectoris; R01.1 Cardiac murmur, unspecified; Z95.1 Presence of aortocoronary bypass graft; Z87.891 Personal history of nicotine dependence; Z79.4 Long term (current) use of insulin; Z79.82 Long term (current) use of aspirin; Z79.899 Other long term (current) drug therapy; X58.XXXD Exposure to other specified factors, subsequent encounter; X58.XXXA Exposure to other specified factors, initial encounter; Y93.89 Activity, other specified; Y92.89 Other specified places as the place of occurrence of the external cause; Y99.8 Other external cause status | CPT/HCPCS: A6197; A6253; G0463 ==

== ENCOUNTER → 2020-07-03 | Outpatient (CLI) | payer MEDICARE ==
[~2020-07-03] MED LIST changes: +FERR325T22 PO; +FOLI0.4T2 PO; +FURO20TA4 PO; +HYDR-2534 PO; -PANT40TA25 PO; +PANT40TA54 PO; +RIVA20TA PO; +VITAMIN B12 PO; +VITAMIN D3 PO
== END | disposition home or self-care (01) ==
LOC: WHH 09:45
PROVIDERS: ATTEND Family Medicine
DX: E11.622 Type 2 diabetes mellitus with other skin ulcer (principal); L97.822 Non-pressure chronic ulcer of other part of left lower leg with fat layer exposed; L97.218 Non-pressure chronic ulcer of right calf with other specified severity; L98.498 Non-pressure chronic ulcer of skin of other sites with other specified severity; S81.802D Unspecified open wound, left lower leg, subsequent encounter; E11.22 Type 2 diabetes mellitus with diabetic chronic kidney disease; I13.0 Hypertensive heart and chronic kidney disease with heart failure and stage 1 through stage 4 chronic kidney disease, or unspecified chronic kidney disease; N18.9 Chronic kidney disease, unspecified; I50.41 Acute combined systolic (congestive) and diastolic (congestive) heart failure; E11.51 Type 2 diabetes mellitus with diabetic peripheral angiopathy without gangrene; M16.11 Unilateral primary osteoarthritis, right hip; E78.5 Hyperlipidemia, unspecified; I25.10 Atherosclerotic heart disease of native coronary artery without angina pectoris; R01.1 Cardiac murmur, unspecified; Z95.1 Presence of aortocoronary bypass graft; Z87.891 Personal history of nicotine dependence; Z79.4 Long term (current) use of insulin; Z79.82 Long term (current) use of aspirin; Z79.899 Other long term (current) drug therapy; X58.XXXD Exposure to other specified factors, subsequent encounter
CPT/HCPCS: A6197; A6252; G0463

== ENCOUNTER → 2020-07-10 | Outpatient (CLI) | payer MEDICARE ==
[~2020-07-10] MED LIST changes: +LIDOCAINE HCL 4% LTA SOL 4 ML VIAL TP ONE
== END | disposition home or self-care (01) ==
LOC: WHH 09:30
PROVIDERS: ATTEND Family Medicine
DX: E11.622 Type 2 diabetes mellitus with other skin ulcer (principal); L97.822 Non-pressure chronic ulcer of other part of left lower leg with fat layer exposed; L97.811 Non-pressure chronic ulcer of other part of right lower leg limited to breakdown of skin; L89.312 Pressure ulcer of right buttock, stage 2; L89.322 Pressure ulcer of left buttock, stage 2; L98.411 Non-pressure chronic ulcer of buttock limited to breakdown of skin; S81.802D Unspecified open wound, left lower leg, subsequent encounter; E11.621 Type 2 diabetes mellitus with foot ulcer; L97.501 Non-pressure chronic ulcer of other part of unspecified foot limited to breakdown of skin; E11.22 Type 2 diabetes mellitus with diabetic chronic kidney disease; I13.0 Hypertensive heart and chronic kidney disease with heart failure and stage 1 through stage 4 chronic kidney disease, or unspecified chronic kidney disease; N18.9 Chronic kidney disease, unspecified; I50.41 Acute combined systolic (congestive) and diastolic (congestive) heart failure; E11.51 Type 2 diabetes mellitus with diabetic peripheral angiopathy without gangrene; M16.11 Unilateral primary osteoarthritis, right hip; E78.5 Hyperlipidemia, unspecified; I25.10 Atherosclerotic heart disease of native coronary artery without angina pectoris; R01.1 Cardiac murmur, unspecified; Z95.1 Presence of aortocoronary bypass graft; Z87.891 Personal history of nicotine dependence; Z79.4 Long term (current) use of insulin; Z79.82 Long term (current) use of aspirin; Z79.899 Other long term (current) drug therapy; X58.XXXD Exposure to other specified factors, subsequent encounter
CPT/HCPCS: 71045; A6197; A6252; G0463

== ENCOUNTER 2020-07-11 08:36 | Day surgery (SDC) | payer MEDICARE ==
[2020-07-09 12:38] LABS: BASOPHILS % (AUTO) 0.4 % (0.0-5.0); EOSINOPHILS % (AUTO) 2.6 % (0.0-8.0); HEMATOCRIT 37.8 % (42-54); LYMPHOCYTES % (AUTO) 13.6 % (21.0-51.0); MEAN CORPUSCULAR HEMOGLOBIN 31.5 pg (27.0-33.0); MEAN CORPUSCULAR HGB CONC 32.5 g/dL (32.0-36.0); MEAN CORPUSCULAR VOLUME 96.7 fL (79-99); MONOCYTES % (AUTO) 6.3 % (3.0-13.0); NEUTROPHILS % (AUTO) 76.5 % (40.0-77.0); PLATELET COUNT (AUTO) 118 K/uL (130-400); RED BLOOD CELL COUNT(AUTO) 3.91 MIL/uL (4.50-6.20); RED CELL DISTRIBUTION WIDTH 17.2 % (11.0-15.5); WHITE BLOOD COUNT (AUTO) 5.4 K/uL (4.8-10.8)
[2020-07-09 12:49] LABS: CREATININE 1.6 mg/dL (0.5-1.5)
[2020-07-09 12:53] LABS: INR 1.25 (0.85-1.15); PARTIAL THROMBOPLASTIN TIME 32.2 SEC (26.3-35.5); PROTHROMBIN TIME 13.4 SEC (9.6-11.6)
[2020-07-09 15:29] VITALS: BP 163/79
[2020-07-10 12:00] LABS: APPEARANCE,URINE CLEAR (CLEAR); BILIRUBIN,URINE NEGATIVE (NEGATIVE); COLOR,URINE YELLOW (YELLOW); GLUCOSE, URINE (UA) NEGATIVE (NEGATIVE); KETONES,URINE NEGATIVE (NEGATIVE); LEUKOCYTE ESTERASE ,URINE NEGATIVE (NEGATIVE); NITRATE,URINE NEGATIVE (NEGATIVE); OCCULT BLOOD,URINE NEGATIVE (NEGATIVE); PROTEIN,URINE NEGATIVE (NEGATIVE); UROBILINOGEN,URINE 0.2 mg/dL (0.2-1.0)
--- NOTE | 2020-07-10 14:16 | NUR ---
labs abnormal labs , chest xray reported to terrie mercado, further orders given and will be carried out
[2020-07-11] VITALS (9 sets, daily range): BP systolic 115–160; BP diastolic 55–76
[~2020-07-11 08:36] MED LIST changes: -FERR325T22 PO; -FOLI0.4T2 PO; -HYDR-2534 PO; -LIDOCAINE HCL 4% LTA SOL 4 ML VIAL TP ONE; -VITAMIN B12 PO; -VITAMIN D3 PO
[2020-07-11] MEDS ORDERED: SODIUM CHLORIDE 0.9% 1000ML 1,000 ML IV ONE (08:47)
[2020-07-11] MEDS ORDERED: HYDR-2534 PO ×2 (10:11)
[2020-07-11] MEDS ORDERED: FOLI0.4T2 PO ×2 (10:11)
[2020-07-11] MEDS ORDERED: FERR325T22 PO ×2 (10:11)
[2020-07-11] MEDS ORDERED: PANT40TA54 PO ×2 (10:11)
[2020-07-11] MEDS ORDERED: VITAMIN B12 PO ×2 (10:11)
[2020-07-11] MEDS ORDERED: VITAMIN D3 PO ×2 (10:11)
[2020-07-11 10:14] LABS: CREATININE 1.5 mg/dL (0.5-1.5); POTASSIUM 3.9 mmol/L (3.5-5.1)
--- NOTE | 2020-07-11 10:14 | NUR ---
PROCEDURE PT HERE FOR PROCEDURE. HAS WOUNDS TO BOTH LOWER EXTREMITIES. BANDAGED. STATES HAS WOUND CARE TWICE A WEEK AND HAS REDNESS NOTED TO LEFT INNER GROIN. STATES PROBABLY FROM UNDERWEAR RUBBING GROIN AREA. WILL INFORM DR. NGUYEN
--- NOTE | 2020-07-11 10:30 | NUR ---
EVALUATION DR. NGUYEN HERE TO EVALUATE PT. INFORMED OF WOUNDS TO LOWER LEGS AND REDNESS TO LEFT INNER GROIN AREA. NO ORDERS RECEIVED. PROCEED WITH PLANNED PROCEDURE.
--- NOTE | 2020-07-11 12:15 | NUR ---
PROCEDURE PT TAKEN TO PROCEDURE VIA BED BY GABY MCDANIELS
[2020-07-11] MEDS ORDERED: SODIUM BICARB 50MEQ 50ML VIAL ONE (12:16)
[2020-07-11] MEDS ORDERED: IOHEXOL-350 50ML VIAL IV ONE (12:16)
[2020-07-11] MEDS ORDERED: MIDAZOLAM HCL 1 MG/ML 2ML VIAL ONE ×2 (12:16→12:48)
[2020-07-11] MEDS ORDERED: IOHEXOL 350 MG/ML 100ML INFUS..BTL IV ONE (12:16)
[2020-07-11] MEDS ORDERED: MEPERIDINE-PF 25 MG/ML SYG ONE ×2 (12:16→12:48)
[2020-07-11] MEDS ORDERED: HEPARIN SODIUM 1000UNIT/ML 10ML VIAL ONE (12:16)
[2020-07-11] MEDS ORDERED: LIDOCAINE HCL 2% 20ML ONE (12:17)
[2020-07-11] MEDS ORDERED: NITROGLYCERIN 2 MG/VIAL VIAL IV ONE (12:17)
[2020-07-11] MEDS ORDERED: SODIUM CHLORIDE 0.9% 1000ML 1,000 ML IV SCH (13:16)
[2020-07-11] MEDS ORDERED: GLUCAGON 1MG KIT 1 MG ML IM PRN (13:30)
[2020-07-11] MEDS ORDERED: DEXTROSE 50%-WATER 50 ML DISP.SYRIN IV PRN (13:30)
--- NOTE | 2020-07-11 13:45 | NUR ---
PROCEDURE PT HERE FROM PROCEDURE. INSTRUCTED ON IMPORTANCE OF KEEPING RIGHT LEG STRAIGHT AND NOT LIFTING HEAD UP OFF OF BED. BOTH T AND VERBALIZED UNDERSTANDING.
[2020-07-11] MEDS ORDERED: INSULIN HUMULIN R 100 UNIT/ML 3ML SQ SCH (16:30)
--- NOTE | 2020-07-11 16:49 | NUR ---
REPORT REPORT GIVEN TO GABY MUÑOZ. PT SITE TO RIGHT GROIN SOFT TO TOUCH.
== END 2020-07-11 17:05 | disposition home or self-care (01) ==
LOC: DAH 08:36
PROVIDERS: ATTEND Internal Medicine Cardiovascular Disease
DX: I25.119 Atherosclerotic heart disease of native coronary artery with unspecified angina pectoris (principal); I25.5 Ischemic cardiomyopathy; I25.82 Chronic total occlusion of coronary artery; E11.22 Type 2 diabetes mellitus with diabetic chronic kidney disease; I13.0 Hypertensive heart and chronic kidney disease with heart failure and stage 1 through stage 4 chronic kidney disease, or unspecified chronic kidney disease; N18.3 Chronic kidney disease, stage 3 (moderate); I50.42 Chronic combined systolic (congestive) and diastolic (congestive) heart failure; E78.5 Hyperlipidemia, unspecified; E66.9 Obesity, unspecified; I48.0 Paroxysmal atrial fibrillation; M47.816 Spondylosis without myelopathy or radiculopathy, lumbar region; Z95.5 Presence of coronary angioplasty implant and graft; Z98.890 Other specified postprocedural states; Z79.01 Long term (current) use of anticoagulants; Z79.899 Other long term (current) drug therapy
CPT/HCPCS: 36415 ×2; 80048 ×2; 81003; 82948; 85025; 85610; 85730; 93005; 93459; A4215; A4216; A4221; A4222; A4223 ×3; A4606; A4663; C1760; C1769; C1894; J1644; J2175 ×2; J2250 ×2; J3490 ×3; J7030; Q9965; Q9967 ×2; 99156; 99157

== ENCOUNTER → 2020-07-17 | Outpatient (CLI) | payer MEDICARE ==
[~2020-07-17] MED LIST changes: +FERR325T22 PO; +FOLI0.4T2 PO; +HYDR-2534 PO; +VITAMIN B12 PO; +VITAMIN D3 PO
== END | disposition home or self-care (01) ==
LOC: WHH 09:55
PROVIDERS: ATTEND Family Medicine
DX: E11.622 Type 2 diabetes mellitus with other skin ulcer (principal); L97.822 Non-pressure chronic ulcer of other part of left lower leg with fat layer exposed; L97.811 Non-pressure chronic ulcer of other part of right lower leg limited to breakdown of skin; L89.312 Pressure ulcer of right buttock, stage 2; L89.322 Pressure ulcer of left buttock, stage 2; L98.411 Non-pressure chronic ulcer of buttock limited to breakdown of skin; L97.111 Non-pressure chronic ulcer of right thigh limited to breakdown of skin; S81.802D Unspecified open wound, left lower leg, subsequent encounter; E11.621 Type 2 diabetes mellitus with foot ulcer; L97.501 Non-pressure chronic ulcer of other part of unspecified foot limited to breakdown of skin; E11.22 Type 2 diabetes mellitus with diabetic chronic kidney disease; I13.0 Hypertensive heart and chronic kidney disease with heart failure and stage 1 through stage 4 chronic kidney disease, or unspecified chronic kidney disease; N18.9 Chronic kidney disease, unspecified; I50.41 Acute combined systolic (congestive) and diastolic (congestive) heart failure; E11.51 Type 2 diabetes mellitus with diabetic peripheral angiopathy without gangrene; M16.11 Unilateral primary osteoarthritis, right hip; E78.5 Hyperlipidemia, unspecified; I25.10 Atherosclerotic heart disease of native coronary artery without angina pectoris; R01.1 Cardiac murmur, unspecified; Z95.1 Presence of aortocoronary bypass graft; Z87.891 Personal history of nicotine dependence; Z79.4 Long term (current) use of insulin; Z79.82 Long term (current) use of aspirin; Z79.899 Other long term (current) drug therapy; X58.XXXD Exposure to other specified factors, subsequent encounter
CPT/HCPCS: A6197; G0463